=== PATIENT | male | born 1955 | race Caucasian/White ===

== ENCOUNTER 2017-09-27 13:09 | Emergency (ER) | payer MEDICARE, BC ==
[~2017-09-27] VITALS: Wt 105.2 kg
[~2017-09-27 13:09] MED LIST: AMOXICILLIN; ASPI-535; DILT180C94 PO; DIPH-232; FLOMAX PO; FOLI-49; LANTUS SQ; LIPA1CAP4 PO; MYCO250C3 PO; NOVOLOG SQ; OMEP20CA9 PO; PREDNISONE PO; PROGRAF PO; VIT1TABL PO
--- NOTE | 2017-09-27 14:22 | RADRPT ---
PROCEDURE: XR Lumbar Spine. CLINICAL INDICATION: back pain TECHNIQUE: AP, lateral and cone-down lateral view of the lumbar spine were obtained. COMPARISON: No prior studies are available for comparison. FINDINGS: There are severe degenerative changes of the lumbar spine at L3-L4. There is disk space narrowing, subchondral sclerosis and spondylosis. There is normal vertebral mineralization. There is minimal dextroscoliosis of the lumbar spine.. No acute fracture is seen. There is no subluxation of vertebral bodies. There is posterior facet arthrosis at L4-S1. The abdominal aorta is calcified. RPTAT: AA IMPRESSION: Severe degenerative changes of the lumbar spine at L3-L4. No acute fracture noted. Minimal dextroscoliosis of the lumbar spine. .Douglas Willams MD, Date Time Electronically viewed and signed by .Douglas Willams MD, on 09/27/2017 14:22 .S/
--- NOTE | 2017-09-27 15:26 | RADRPT ---
PROCEDURE: CT Brain without contrast. CLINICAL INDICATION: Headaches. Neurologic deficit TECHNIQUE: A CT of the brain was performed on multidetector high-resolution CT scanner utilizing a xial sections from the skull base through the vertex without contrast. One or more of the following dose reduction techniques were used: Automated exposure control, Adjustment of the mA and/or kV acc ording to patient size, and/or use of iterative reconstruction technique. DICOM images are available . DOSE: CTDI = 43 mGy and the DLP = 630 mGy-cm. COMPARISON: None available FINDINGS: No acute intracranial hemorrhage, significant mass effect or midline shift. Mild hypoattenuation of the cerebral white matter is compatible with chronic microvascular ischemic changes. Vascular calcif ications. Prominence of the cortical sulci and ventricles are related to mild cerebral volume loss. No significant opacification of the visualized paranasal sinuses or mastoids. IMPRESSION: No acute intracranial hemorrhage or mass effect. Mild chronic microvascular disease and intracranial atherosclerosis. RPTAT: AA .John Amos MD, MD Date Time Electronically viewed and signed by .John Amos MD, MD on 09/27/2017 15:26 .T/
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
[2017-09-27] MEDS ORDERED: IBUP-1542 PO (15:32)
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
== END 2017-09-27 15:38 | disposition home or self-care (01) ==
LOC: FTE 13:09
DX: M54.2 Cervicalgia (principal); M54.5 Low back pain; I10 Essential (primary) hypertension; R51 Headache; Z79.82 Long term (current) use of aspirin
CPT/HCPCS: 70450; 72100; 72125

== ENCOUNTER 2018-02-22 21:44 | Emergency (ER) | END 2018-02-23 00:45 | disposition home or self-care (01) ==